=== PATIENT | female | born 1970 | race Hispanic/Latino ===

== ENCOUNTER 2017-10-17 11:02 | Emergency (ER) | payer SELFPAY ==
[2017-10-17 11:22] VITALS: TEMP 97.8
[2017-10-17] MEDS ORDERED: KETOROLAC TROMETHAMINE INJ 60 MG/2 ML VIAL IM ONE (11:25)
[2017-10-17] MEDS ORDERED: HYDROcodone 10MG/APAP 325MG 1 EA TAB PO ONE (11:26)
[2017-10-17] MEDS ORDERED: ORPHENADRINE CITRATE 30 MG/ML AMP IM ONE (11:26)
--- NOTE | 2017-10-17 11:30 | ED.PDOC ---
History of Present Illness - General Chief Complaint: Back Pain or Injury Stated Complaint: low back pain Time Seen by Provider: 10/17/17 11:25 Source: patient Exam Limitations: no limitations - History of Present Illness Initial Comments: PT REPORTS PROGRESSIVELY WORSENING LOW BACK PAIN FOR THE PAST 4 DAYS WITH RADIATION DOWN BOTH LEGS, R>L. PT REPORTS SIMILAR SYMPTOMS IN THE PAST BUT STATES THAT PAIN NEVER BECAME UNBEARABLE PT DESCRIBES IT TODAY. PT REPORTS LIFTING HER DISABLED GRANDSON REGULARLY BUT DOES NOT RECALL ANY SPECIFIC INJURY. PT DENIES BOWEL OR BLADDER SYMPTOMS. Quality/Severity: severe, burning, radiation Back Pain Location: lumbar spine Back Pain Radiation: buttocks, upper legs Improving Factors: nothing Worsening Factors: nothing Associated Symptoms: lower back pain Allergies/Adverse Reactions: Allergies NO KNOWN ALLERGY Allergy (Unverified 02/26/13 20:47) Home Medications: Ambulatory Orders Acetaminophen W/ Codeine [Acetaminophen/Codeine 300-30 mg] 1 tab PO Q6-8H PRN # 15 tab 12/09/14 Clindamycin HCl 300 mg PO Q6HR #40 cap 12/09/14 Acetaminophen W/ Codeine [Tylenol W/ CODEINE #3] 1 ea PO Q4HR PRN #24 10/17/17 Diazepam [Valium] 2 mg PO Q6HR PRN #14 tab 10/17/17 Ibuprofen 800 mg PO Q8HR PRN #30 tab 10/17/17 Review of Systems - Review of Systems Constitutional: Denies: chills, fever Gastrointestinal/Abdominal: Denies: constipation, diarrhea Genitourinary: Denies: dysuria, frequency, hematuria Musculoskeletal: States: see HPI, back pain. Denies: joint pain, joint swelling Past Medical History (General) - Patient Medical History Hx Seizures: No Hx Stroke: No Hx Dementia: No Hx Asthma: No Hx of COPD: No Hx Cardiac Disorders: No Hx Congestive Heart Failure: No Hx Pacemaker: No Hx Hypertension: No Hx Thyroid Disease: No Hx Diabetes: No Hx Gastroesophageal Reflux: No Hx Renal Disease: No Surgical History: Hysterectomy - Vaccination History Hx Tetanus, Diphtheria Vaccination: Yes - Female History Patient : No Family Medical History - Family History Mother Family History: No Known Living Status: Physical Exam - Physical Exam General Appearance: Obvious distress, Well Developed, Well Groomed, Well Hydrated Back Exam: normal inspection, vertebral tenderness - LUMBAR Extremity Exam: other - POSITIVE STRAIGHT LEG RAISE AT 20 DEGREES Neurologic: certified medication aide II-XII nml as tested, no motor/sensory deficits, alert, normal mood/affect, oriented x 3 Skin Exam: normal color, warm/dry Progress - Progress Progress: 10/17/17 12:55 PT REPORTS SIGNIFICANT IMPROVEMENT IN SYMPTOMS AFTER TORADOL, NORCO, AND NORFLEX. Departure - Departure Clinical Impression: Sciatica Time of Disposition: 12:56 Disposition: Discharge to Home or Self Care Condition: Good Departure Forms: ED Discharge - Pt. Copy, Patient Portal Self Enrollment Instructions: DI for Back Pain With Sciatica Activity: increase activity as tolerated, no exercise, no lifting, walking as tolerated Prescriptions: Acetaminophen W/ Codeine [Tylenol W/ CODEINE #3] 1 ea PO Q4HR PRN #24 PRN Reason: Pain Diazepam [Valium] 2 mg PO Q6HR PRN #14 tab PRN Reason: Muscle Spasms Ibuprofen 800 mg PO Q8HR PRN #30 tab PRN Reason: Pain Home Medications: Ambulatory Orders Acetaminophen W/ Codeine [Acetaminophen/Codeine 300-30 mg] 1 tab PO Q6-8H PRN # 15 tab 12/09/14 Clindamycin HCl 300 mg PO Q6HR #40 cap 12/09/14 Acetaminophen W/ Codeine [Tylenol W/ CODEINE #3] 1 ea PO Q4HR PRN #24 10/17/17 Diazepam [Valium] 2 mg PO Q6HR PRN #14 tab 10/17/17 Ibuprofen 800 mg PO Q8HR PRN #30 tab 10/17/17
[2017-10-17 13:07] VITALS: BP 108/52; O2SAT 97
== END 2017-10-17 13:07 | disposition home or self-care (01) ==
LOC: ER 11:02
DX: M54.30 Sciatica, unspecified side (principal)
CPT/HCPCS: 81001; J1885; J2360